=== PATIENT | female | born 1990 | race Two or more races ===

== ENCOUNTER 2017-03-13 03:44 | Emergency (ER) | payer SELFPAY ==
[~2017-03-13] VITALS: Ht 167.6 cm; Wt 56.7 kg
--- NOTE | 2017-03-13 03:44 | NUR ---
pt marck haji home for c/o LLQ abd pain w/ nausea, no vomiting x today, report drinking 1 bottle of champagne today and has been drinking 1 bottle of champagne TIW x2 mos, denies any diarrhea, lbm today normal, lmp x02/18/17. AOx4, afebrile w/ resp even & unlabored, VSS w/ nad noted. pt in gown, on continuous monitoring. Urine obtained & sent to lab. Pending further sedrick haji MD.
[2017-03-13] MEDS ORDERED: ONDANSETRON HCL/PF 4 MG/2 ML VIAL ONE (03:50)
[2017-03-13] MEDS ORDERED: IV NS 0.9% 1,000 ML ONE (03:50)
[2017-03-13] MEDS ORDERED: IV SET PRIMARY 1 EA INFUS.SET MC ONE (03:50)
--- NOTE | 2017-03-13 03:54 | NUR ---
Dr. Vasquez at bedside for eval. IVHL started, labs drawn & sent. Medicated as ordered.
[2017-03-13] MEDS ORDERED: IV NS 0.9% 1,000 ML BAG IV ONE (04:00)
[2017-03-13] MEDS ORDERED: ONDANSETRON HCL/PF 4 MG/2 ML VIAL IVP ONE (04:00)
[2017-03-13 04:09] LABS: BASOPHILS % (AUTO) 0.4 % (0.0-2.0); EOSINOPHILS # (AUTO) 0.1 /CMM (0.0-0.7); EOSINOPHILS % (AUTO) 1.2 % (0.0-6.0); HEMATOCRIT 42 % (33-45); HEMOGLOBIN 14.4 g/dL (11.5-14.8); LYMPHOCYTES # (AUTO) 2.8 /CMM (0.8-4.8); LYMPHOCYTES % (AUTO) 27.6 % (20.0-44.0); MEAN CORPUSCULAR HEMOGLOBIN 30 PG (26.0-33.0); MEAN CORPUSCULAR HGB CONC 34 g/dl (31.0-36.0); MEAN CORPUSCULAR VOLUME 88 fL (82-100); MONOCYTES # (AUTO) 0.7 /CMM (0.1-1.30); MONOCYTES % (AUTO) 6.7 % (2.0-12.0); NEUTROPHILS # (AUTO) 6.4 /CMM (1.8-8.9); NEUTROPHILS % (AUTO) 64.1 % (43.0-81.0); PLATELET COUNT (AUTO) 224 /CMM (150-450); RDW COEFFICIENT OF VARIATION 13.6 (11.5-15.0); RED BLOOD CELL COUNT(AUTO) 4.79 MIL/uL (4.0-5.2)
[2017-03-13 04:19] LABS: CALCIUM, SERUM 8.6 mg/dL (8.5-10.1); CREATININE 0.7 mg/dL (0.6-1.3); POTASSIUM 3.4 mmol/L (3.5-5.1)
--- NOTE | 2017-03-13 04:20 | NUR ---
pt lying in bed w/ resp even & unlabored, IV flds continue to be infusing w/ IVHL patent & intact, nad noted. On continuous monitoring.
[2017-03-13 04:22] LABS: INR 0.98 (0.87-1.13); PROTHROMBIN TIME 10.5 SECS (9.5-12.7)
[2017-03-13] MEDS ORDERED: Magnesium 1GM/D5W 100ML PREMIX 200 ML IV ONE (04:24)
[2017-03-13] MEDS ORDERED: IV D5/0.45 NACL 500 ML IV ONE ×2 (04:24→04:30)
[2017-03-13] MEDS ORDERED: IV SET PRIMARY PUMP SET 1 EA INFUS.SET MC ONE (04:24)
[2017-03-13] MEDS ORDERED: SECONDARY IV SET 1 EA INFUS.SET MC ONE (04:24)
[2017-03-13 04:25] LABS: BILIRUBIN,DIRECT 0.2 mg/dL (0.0-0.2); BILIRUBIN,TOTAL 0.7 mg/dL (0.2-1.0); TOTAL PROTEIN, SERUM 7.3 g/dL (6.4-8.2)
[2017-03-13] MEDS ORDERED: Magnesium 1 GM/2 ML VIAL IV ONE (04:30)
--- NOTE | 2017-03-13 05:18 | NUR ---
pt refusing pepcid and reglan at this time. states continues to have lower abd pain, but tolerable at this time. Dr. Vasquez notified.
[2017-03-13] MEDS ORDERED: FAMOTIDINE/PF INJ 20 MG/2 ML VIAL IV ONE (05:30)
[2017-03-13] MEDS ORDERED: METOCLOPRAMIDE HCL 10 MG/2 ML VIAL IV ONE (05:30)
--- NOTE | 2017-03-13 06:36 | NUR ---
Patient ambulatory w/ steady gait, resp even & unlabored, denies any pain w/ nad noted. pt mom at bedside. IV removed. Catheter intact and site benign. Pressure and 4x4 applied to site. No bleeding noted.Patient discharged to home in stable condition. Written and verbal after care instructions given. Patient verbalizes understanding of instruction.
[2017-03-13 06:37] VITALS: BP 102/56
== END 2017-03-13 06:38 | disposition home or self-care (01) ==
LOC: ER 03:46
DX: K29.20 Alcoholic gastritis without bleeding (principal); F10.129 Alcohol abuse with intoxication, unspecified; F41.9 Anxiety disorder, unspecified; F17.200 Nicotine dependence, unspecified, uncomplicated; R79.89 Other specified abnormal findings of blood chemistry
CPT/HCPCS: 36415; 80048-TC; 80076-TC; 82962-TC; 83690-TC; 84703-TC; 85025-TC; 85730-TC; A4606; J2405; J3475; J3490; J7030; Z7610

== ENCOUNTER 2017-04-08 13:23 | Emergency (ER) | payer MEDICAID ==
[~2017-04-08] VITALS: Ht 154.9 cm; Wt 52.2 kg
--- NOTE | 2017-04-08 13:30 | NUR ---
pt bibra to er bed 15. c/o headache and diffuse abdominal pain from drinking vodka yesterday. denies n/v. awaiting md dubose.
[2017-04-08] MEDS ORDERED: IV NS 0.9% 1,000 ML ONE (14:17)
[2017-04-08] MEDS ORDERED: IV SET PRIMARY 1 EA INFUS.SET MC ONE (14:17)
[2017-04-08 14:20] LABS: APPEARANCE,URINE SL CLOUDY (CLEAR); BILIRUBIN,URINE NEGATIVE (NEGATIVE); BLOOD, URINE 1+ Ery/uL (NEGATIVE); COLOR,URINE YELLOW (YELLOW); KETONES,URINE NEGATIVE (NEGATIVE); LEUKOCYTE ESTERASE ,URINE 1+ (NEGATIVE); NITRITE, URINE NEGATIVE (NEGATIVE); PROTEIN,URINE NEGATIVE (NEGATIVE); UGLUCOSE NEGATIVE (NEGATIVE); UROBILINOGEN,URINE 0.2 EU/dL (0.2)
[2017-04-08 14:28] LABS: PREGNANCY TEST URINE QUAL NEGATIVE (NEGATIVE)
[2017-04-08] MEDS ORDERED: IV NS 0.9% 1,000 ML BAG IV ONE (14:30)
[2017-04-08 14:32] LABS: CALCIUM, SERUM 8.8 mg/dL (8.5-10.1); CREATININE 0.6 mg/dL (0.6-1.3); POTASSIUM 3.7 mmol/L (3.5-5.1)
[2017-04-08 14:34] LABS: BASOPHILS % (AUTO) 0.5 % (0.0-2.0); EOSINOPHILS # (AUTO) 0.1 /CMM (0.0-0.7); EOSINOPHILS % (AUTO) 1.1 % (0.0-6.0); HEMATOCRIT 40 % (33-45); LYMPHOCYTES # (AUTO) 1.5 /CMM (0.8-4.8); LYMPHOCYTES % (AUTO) 20.4 % (20.0-44.0); MEAN CORPUSCULAR HEMOGLOBIN 31 PG (26.0-33.0); MEAN CORPUSCULAR HGB CONC 35 g/dl (31.0-36.0); MEAN CORPUSCULAR VOLUME 88 fL (82-100); MONOCYTES # (AUTO) 0.4 /CMM (0.1-1.30); MONOCYTES % (AUTO) 5.9 % (2.0-12.0); NEUTROPHILS # (AUTO) 5.2 /CMM (1.8-8.9); NEUTROPHILS % (AUTO) 72.1 % (43.0-81.0); PLATELET COUNT (AUTO) 195 /CMM (150-450); RDW COEFFICIENT OF VARIATION 12.5 (11.5-15.0); RED BLOOD CELL COUNT(AUTO) 4.58 MIL/uL (4.0-5.2); WHITE BLOOD COUNT (AUTO) 7.2 K/uL (4.3-11.0)
[2017-04-08 14:34] LABS: BACTERIA,URINE Many /HPF (None Seen); RBC,URINE 0-2 /HPF (0-2); SQUAMOUS EPITHELIAL CELL,UR Many /HPF (None Seen)
[2017-04-08 14:38] LABS: ALBUMIN 3.8 g/dL (3.4-5.0); BILIRUBIN,DIRECT 0.2 mg/dL (0.0-0.2); BILIRUBIN,TOTAL 1.1 mg/dL (0.2-1.0); TOTAL PROTEIN, SERUM 7.1 g/dL (6.4-8.2)
--- NOTE | 2017-04-08 14:53 | NUR ---
u/s tech at bedside for pelvic ultrasound.
--- NOTE | 2017-04-08 15:40 | NUR ---
Patient discharged to home in stable condition. Written and verbal after care instructions given. Patient verbalizes understanding of instruction.IV removed. Catheter intact and site benign. Pressure and 4x4 applied to site. No bleeding noted.
[2017-04-08 15:44] VITALS: BP 118/64
== END 2017-04-08 15:45 | disposition home or self-care (01) ==
LOC: ER 13:25
DX: N39.0 Urinary tract infection, site not specified (principal); N83.201 Unspecified ovarian cyst, right side; N83.202 Unspecified ovarian cyst, left side; F41.9 Anxiety disorder, unspecified; F10.10 Alcohol abuse, uncomplicated; Z87.891 Personal history of nicotine dependence
CPT/HCPCS: 36415; 76856; 80048; 80076; 81001; 83690; 84703; 85025; 87086; 99285; A4606; J7030; Z7610; 81000-TC

== ENCOUNTER 2019-05-31 21:29 | Emergency (ER) | payer MEDICAID ==
[~2019-05-31] VITALS: Ht 162.6 cm; Wt 59.0 kg
[2019-05-31 21:50] VITALS: BP 113/75
[2019-05-31] MEDS ORDERED: IBUPROFEN 400 MG TABLET ONE (22:27)
[2019-05-31] MEDS ORDERED: IBUPROFEN 400 MG TABLET PO ONE (22:30)
== END 2019-05-31 22:52 | disposition home or self-care (01) ==
LOC: ER 21:32
DX: H66.91 Otitis media, unspecified, right ear (principal); F41.9 Anxiety disorder, unspecified; F10.10 Alcohol abuse, uncomplicated; F17.200 Nicotine dependence, unspecified, uncomplicated; Y90.9 Presence of alcohol in blood, level not specified

== ENCOUNTER 2019-06-02 02:19 | Emergency (ER) | payer MEDICAID ==
[~2019-06-02] VITALS: Ht 162.6 cm; Wt 59.0 kg
[2019-06-02 02:26] VITALS: BP 120/75
--- NOTE | 2019-06-02 02:30 | NUR ---
URINE COLLECTED AND SENT TO LAB
--- NOTE | 2019-06-02 03:15 | NUR ---
Patient discharged to home in stable condition. Written and verbal after care instructions given. Patient verbalizes understanding of instruction.
== END 2019-06-02 03:15 | disposition home or self-care (01) ==
LOC: ER 02:21
DX: N93.9 Abnormal uterine and vaginal bleeding, unspecified (principal); F41.9 Anxiety disorder, unspecified; F10.10 Alcohol abuse, uncomplicated; F17.200 Nicotine dependence, unspecified, uncomplicated; Y90.9 Presence of alcohol in blood, level not specified; Z32.02 Encounter for pregnancy test, result negative
CPT/HCPCS: 84703-TC

== ENCOUNTER 2019-10-04 00:40 | Emergency (ER) | payer MEDICAID ==
[~2019-10-04] VITALS: Ht 162.6 cm; Wt 59.0 kg
[2019-10-04] MEDS ORDERED: CEPHALEXIN MONOHYDRATE 500 MG CAPSULE PO ONE (02:18)
[2019-10-04] MEDS ORDERED: IBUPROFEN 600 MG TABLET PO ONE (02:18)
[2019-10-04] MEDS: IBUPROFEN 600 MG TABLET PO ONE (02:20)
[2019-10-04] MEDS: CEPHALEXIN MONOHYDRATE 500 MG CAPSULE PO ONE (02:20)
--- NOTE | 2019-10-04 02:52 | NUR ---
US TECH AT THE BED SIDE
--- NOTE | 2019-10-04 03:28 | NUR ---
Patient discharged to home in stable condition. Written and verbal after care instructions given. Patient verbalizes understanding of instruction.
[2019-10-04 03:42] VITALS: BP 111/78
== END 2019-10-04 03:43 | disposition home or self-care (01) ==
LOC: ER 00:40
DX: N61.1 Abscess of the breast and nipple (principal); F41.9 Anxiety disorder, unspecified; F10.10 Alcohol abuse, uncomplicated; F17.200 Nicotine dependence, unspecified, uncomplicated; Y90.9 Presence of alcohol in blood, level not specified
CPT/HCPCS: 76642-TC

== ENCOUNTER 2019-12-16 15:55 | Emergency (ER) | payer MEDICAID ==
[~2019-12-16] VITALS: Ht 162.6 cm; Wt 59.9 kg
--- NOTE | 2019-12-16 16:16 | NUR ---
PT AAOX4. AMBULATORY WITH STEADY GAIT. BIBRA C/O ANXIETY S/P SMOKING MARIJUANA. PT STATED SHE SMOKERD MARIJUANA YESTERDAY. PLACED ON MONITOR AND PULSE OX. VSS. NO ACUTE DISTRESS NOTED. PT NTOED SHE TOOK LAO HERBAL WHICH HELPED HER CALM DOWN.
[2019-12-16] MEDS ORDERED: LORAZEPAM 0.5 MG TABLET PO ONE (16:30)
--- NOTE | 2019-12-16 16:41 | NUR ---
URINE COLLECTED AND SENT TO LAB
--- NOTE | 2019-12-16 16:54 | NUR ---
[employer] AT BEDSIDE
[2019-12-16 19:03] VITALS: BP 128/78
--- NOTE | 2019-12-16 19:03 | NUR ---
Patient discharged to home in stable condition. Written and verbal after care instructions given. Patient verbalizes understanding of instruction. Pt ambulated with steady gait. vss.
== END 2019-12-16 19:07 | disposition home or self-care (01) ==
LOC: ER 15:56
DX: F41.9 Anxiety disorder, unspecified (principal); F12.10 Cannabis abuse, uncomplicated; R00.2 Palpitations; R00.0 Tachycardia, unspecified; F10.10 Alcohol abuse, uncomplicated; F17.200 Nicotine dependence, unspecified, uncomplicated; Y90.9 Presence of alcohol in blood, level not specified
CPT/HCPCS: 84703-TC

== ENCOUNTER 2020-05-03 07:17 | Emergency (ER) | payer MEDICAID ==
[~2020-05-03] VITALS: Ht 162.6 cm; Wt 65.8 kg
[2020-05-03] MEDS ORDERED: LORAZEPAM INJ 2 MG/ML VIAL IV ONE (07:30)
[2020-05-03] MEDS ORDERED: IV NS 0.9% 1,000 ML BAG IV ONE (07:30)
[2020-05-03] MEDS ORDERED: ASPIRIN 325 MG TABLET ONE (07:35)
[2020-05-03] MEDS ORDERED: LORAZEPAM INJ 2 MG/ML VIAL ONE (07:37)
[2020-05-03 07:52] LABS: BASOPHILS # (AUTO) 0.1 /CMM (0.0-0.2); BASOPHILS % (AUTO) 0.5 % (0.0-2.0); EOSINOPHILS % (AUTO) 0.3 % (0.0-6.0); HEMATOCRIT 41 % (33-45); HEMOGLOBIN 13.9 g/dL (11.5-14.8); LYMPHOCYTES # (AUTO) 2.4 /CMM (0.8-4.8); MEAN CORPUSCULAR HGB CONC 34 g/dl (31.0-36.0); MEAN CORPUSCULAR VOLUME 90 fL (82-100); MONOCYTES # (AUTO) 0.8 /CMM (0.1-1.30); MONOCYTES % (AUTO) 6.5 % (2.0-12.0); NEUTROPHILS # (AUTO) 8.7 /CMM (1.8-8.9); NEUTROPHILS % (AUTO) 72.7 % (43.0-81.0); PLATELET COUNT (AUTO) 297 /CMM (150-450); RED BLOOD CELL COUNT(AUTO) 4.59 MIL/uL (4.0-5.2)
[2020-05-03 07:58] LABS: CALCIUM, SERUM 8.9 mg/dL (8.5-10.1); CARBON DIOXIDE 26 mmol/L (21-32); CHLORIDE 99 mmol/L (98-107); CREATININE 0.7 mg/dL (0.6-1.3); GLUCOSE 99 mg/dL (74-106); POTASSIUM 3.2 mmol/L (3.5-5.1); SODIUM SERUM 135 mmol/L (136-145); UREA NITROGEN, BLOOD 11 mg/dL (7-18)
[2020-05-03] MEDS ORDERED: ASPIRIN 325 MG TABLET PO ONE (08:00)
--- NOTE | 2020-05-03 10:20 | NUR ---
[id number] FRM HOME C/O HEART PALPITATION S/P COCAINE USE. +ETOH SMELL. ON ROOM AIR, BREATHING EVENLY AND UNLABORED. CONNECTED TO THE MONITOR AND PULSE OX. KEPT COMFORTABLE, WILL CONTINUE TO MONITOR ACCORDINGLY.
--- NOTE | 2020-05-03 10:21 | NUR ---
patient asleep and resting, no sob, connected to monitor. will continue to monitor accordingly.
[2020-05-03 12:32] VITALS: BP 101/61
== END 2020-05-03 12:33 | disposition home or self-care (01) ==
LOC: ER 07:19
DX: F14.90 Cocaine use, unspecified, uncomplicated (principal); F41.9 Anxiety disorder, unspecified; F17.200 Nicotine dependence, unspecified, uncomplicated
CPT/HCPCS: 36415; 71045; 80048; 84484; 84703; 85025; 93005; 96374; 99285; J2060; J7030

== ENCOUNTER 2020-06-13 11:30 | Emergency (ER) | payer MEDICAID ==
[~2020-06-13] VITALS: Ht 152.4 cm; Wt 64.4 kg
--- NOTE | 2020-06-13 11:44 | NUR ---
URINE SPECIMEN COLLECTED AND SENT TO LAB.
--- NOTE | 2020-06-13 11:48 | NUR ---
pt bibra from home. c/o anxiety, chest palpitation x today. pt admits to using cocain last night. pt seen in ED multiple times for same reason. 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 awaiting md dubose.
[2020-06-13] MEDS ORDERED: LORAZEPAM 1 MG TABLET ONE (12:39)
--- NOTE | 2020-06-13 12:53 | NUR ---
pt feeling much better. want to go home. cleared by dr huerta. discharge in stable condition.
[2020-06-13 12:55] VITALS: BP 115/65
[2020-06-13] MEDS ORDERED: LORAZEPAM 1 MG TABLET PO ONE (13:00)
== END 2020-06-13 12:57 | disposition home or self-care (01) ==
LOC: ER 11:40
DX: F14.10 Cocaine abuse, uncomplicated (principal); F41.9 Anxiety disorder, unspecified; F10.10 Alcohol abuse, uncomplicated; F17.200 Nicotine dependence, unspecified, uncomplicated; Y90.9 Presence of alcohol in blood, level not specified

== ENCOUNTER 2020-07-13 20:51 | Emergency (ER) | payer MEDICAID ==
[~2020-07-13] VITALS: Ht 160 cm; Wt 63.5 kg
--- NOTE | 2020-07-13 21:08 | NUR ---
PT AAOX4. BIBSELF C/O LOWER ABDOMINAL PAIN X1 DAY +NAUSEA,-VOMITTING,-DYSURIA,-VB. NO ACUTE DISTRESS NOTED. PT PLACED ON MONITOR AND PULSE OX. VSS. NO ACUTE DISTRESS NOTED.
[2020-07-13] MEDS ORDERED: ONDANSETRON HCL/PF 4 MG/2 ML VIAL ONE (21:14)
[2020-07-13] MEDS ORDERED: MORPHINE SULFATE INJ 4 MG/ML DISP.SYRIN ONE (21:14)
--- NOTE | 2020-07-13 21:25 | NUR ---
[facility] AT BEDSIDE
[2020-07-13] MEDS ORDERED: ONDANSETRON HCL/PF 4 MG/2 ML VIAL IVP ONE (21:30)
[2020-07-13] MEDS ORDERED: MORPHINE SULFATE INJ 2 MG/ML DISP.SYRIN IV ONE (21:30)
[2020-07-13] MEDS ORDERED: IV NS 0.9% 1,000 ML BAG IV ONE (21:30)
[2020-07-13 21:56] LABS: BASOPHILS # (AUTO) 0.1 /CMM (0.0-0.2); BASOPHILS % (AUTO) 0.6 % (0.0-2.0); EOSINOPHILS % (AUTO) 0.5 % (0.0-6.0); HEMATOCRIT 41 % (33-45); HEMOGLOBIN 13.7 g/dL (11.5-14.8); LYMPHOCYTES # (AUTO) 1.6 /CMM (0.8-4.8); LYMPHOCYTES % (AUTO) 16.1 % (20.0-44.0); MEAN CORPUSCULAR HGB CONC 33 g/dl (31.0-36.0); MEAN CORPUSCULAR VOLUME 90 fL (82-100); MONOCYTES # (AUTO) 0.6 /CMM (0.1-1.30); MONOCYTES % (AUTO) 5.7 % (2.0-12.0); NEUTROPHILS # (AUTO) 7.7 /CMM (1.8-8.9); NEUTROPHILS % (AUTO) 77.1 % (43.0-81.0); PLATELET COUNT (AUTO) 221 /CMM (150-450); RED BLOOD CELL COUNT(AUTO) 4.59 MIL/uL (4.0-5.2)
[2020-07-13 22:06] LABS: APPEARANCE,URINE CLEAR (CLEAR); BILIRUBIN,URINE NEGATIVE (NEGATIVE); BLOOD, URINE SMALL Ery/uL (NEGATIVE); COLOR,URINE YELLOW (YELLOW); KETONES,URINE NEGATIVE (NEGATIVE); LEUKOCYTE ESTERASE ,URINE NEGATIVE (NEGATIVE); NITRITE, URINE NEGATIVE (NEGATIVE); PROTEIN,URINE NEGATIVE (NEGATIVE); UGLUCOSE NEGATIVE (NEGATIVE); UROBILINOGEN,URINE 0.2 EU/dL (0.2)
[2020-07-13 22:16] LABS: BILIRUBIN,DIRECT 0.2 mg/dL (0.0-0.2); BILIRUBIN,TOTAL 0.7 mg/dL (0.2-1.0); CALCIUM, SERUM 9.1 mg/dL (8.5-10.1); CREATININE 0.7 mg/dL (0.6-1.3); POTASSIUM 3.8 mmol/L (3.5-5.1); TOTAL PROTEIN, SERUM 7.6 g/dL (6.4-8.2)
--- NOTE | 2020-07-13 22:28 | NUR ---
Patient discharged to home in stable condition. Written and verbal after care instructions given. Patient verbalizes understanding of instruction and RX. Pt ambulated with steady gait. vss.
[2020-07-13 22:29] VITALS: BP 111/72
== END 2020-07-13 22:30 | disposition home or self-care (01) ==
LOC: ER 20:51
DX: R10.30 Lower abdominal pain, unspecified (principal); R11.0 Nausea; I10 Essential (primary) hypertension; F41.9 Anxiety disorder, unspecified; F15.10 Other stimulant abuse, uncomplicated; F17.200 Nicotine dependence, unspecified, uncomplicated
CPT/HCPCS: 36415; 76856; 80048; 80076; 81001; 83690; 84703; 85025; 99284; J7030; 81000-TC; J2270; J2405